=== PATIENT | male | born 1945 | race Caucasian/White ===

== ENCOUNTER 2022-08-10 12:57 | Inpatient (IN) | payer OTHER, MEDICAID ==
[~2022-08-10] VITALS: Ht 30.5 cm; Wt 0.5 kg
--- NOTE | 2022-08-10 13:00 | NUR ---
BIB ALS WITH C/C OF ALOC WITH HYPOTENSION. PT WAS AT HOME WITH ALOC, EMS CHECKED BP WITH 80/43, IV INSERTED AND BOLUS GIVEN. BP INCREASED TO 109/50. PT ON ARRIVAL A/O X 4, NAD NOTED. PT UNSURE TO WHY HE IS HERE. PT APPEARS TO HAVE EMESIS. GLUCOSE IN FIELD 315. DR. CERVANTES MADE AWARE.
--- NOTE | 2022-08-10 13:30 | NUR ---
PLACED IN BED 4.
--- NOTE | 2022-08-10 13:45 | NUR ---
PT BIB BLS FROM HOME, CC ALOC, PT IS A&OX2, BLS REPORTS PAST MEDICAL HISTORY DIABETES, KIDNEY DISEASE AND HTN.
--- NOTE | 2022-08-10 13:50 | NUR ---
DR. CERVANTES EXAMINING PT AT BEDSIDE.
[2022-08-10 13:59] VITALS: BP_SYST 119
[2022-08-10] MEDS ORDERED: NACL 0.9% 1,000 ML IV ONE ×2 (14:00→16:45)
[2022-08-10 14:29] LABS: BASOPHILS # (AUTO) 0.2 K/uL (0.0-0.2); BASOPHILS % (AUTO) 4.1 % (0.0-2.0); EOSINOPHILS % (AUTO) 1.1 % (0.0-4.0); HEMATOCRIT 26.4 % (36-54); HEMOGLOBIN 8.9 g/dL (14.0-18.0); LYMPHOCYTES # (AUTO) 1.2 K/uL (1.0-5.5); LYMPHOCYTES % (AUTO) 29.7 % (20.5-51.5); MEAN CORPUSCULAR HEMOGLOBIN 32 pg (27-31); MEAN CORPUSCULAR HGB CONC 34 % (32-36); MEAN CORPUSCULAR VOLUME 94 fL (79.0-98.0); MONOCYTES # (AUTO) 0.2 K/uL (0.0-1.0); MONOCYTES % (AUTO) 5.4 % (1.7-9.3); NEUTROPHILS # (AUTO) 2.4 K/uL (1.8-7.7); NEUTROPHILS % (AUTO) 59.7 % (40.0-70.0); PLATELET COUNT (AUTO) 94 K/uL (130-430)
[2022-08-10 14:45] LABS: ANION GAP 9 (5-15); CALCIUM 9.3 mg/dL (8.4-11.0); CHLORIDE 100 mmol/L (98-107); CREATININE 2.65 mg/dL (0.55-1.30); GLUCOSE 186 mg/dL (70-99); UREA NITROGEN, BLOOD 31 mg/dL (8-21)
[2022-08-10 14:52] LABS: ALANINE AMINOTRANSFERASE 20 U/L (12-78); ALBUMIN 2.9 g/dL (3.4-4.8); ASPARTATE AMINOTRANSFERASE 50 U/L (10-37); TOTAL BILIRUBIN 0.5 mg/dL (0.0-1.0)
[2022-08-10 14:54] LABS: ACETAMINOPHEN < 1 ug/mL (1-30); ALCOHOL, BLOOD < 3 mg/dL (<10)
[2022-08-10 14:57] LABS: INR 1.1 (0.80-1.20); PROTHROMBIN TIME 11.4 SECS (9.5-12.5)
--- NOTE | 2022-08-10 15:22 | NUR ---
INFLUENZA AND COVID SWABS OBTAINED AND SENT TO LAB.
--- NOTE | 2022-08-10 16:27 | NUR ---
CONTACT ETIENNE GOFF AT [phone] ANY CHANGE IN CONDITION AND/OR TRANSFER/ADMISSION.
[2022-08-10] MEDS ORDERED: cefTRIAXone 1 GM in D5W 50 ML IV ONE (16:45)
[2022-08-10] MEDS ORDERED: OSELTAMIVIR PHOSPHATE 75 MG CAPSULE PO ONE (17:00)
--- NOTE | 2022-08-10 17:09 | NUR ---
Admit bed requested Patient will be admitted to care of . Admitted to TELEMETRY unit. Diagnosis SYNCOPE Inpatient (Yes or No) Y Observation (Yes or No) N Orientation concerns or request close to nursing station (Yes or No) N Covid Status N On vent or bipap N Isolation requirements N Needs a sitter N From Home (Yes or if No enter name of facility) Y Requires Dialysis (Yes or No) N Med Rec Completed (Yes of No) N
--- NOTE | 2022-08-10 17:32 | NUR ---
SPOKE TO DAUGHTER AURELIANO INFORMED OF ADMISSION PROCEDURES. DAUGHTER WILL CALL BACK WITH MED RECONCILLIATION.
[2022-08-10 17:58] VITALS: BP_SYST 119
[2022-08-10] MEDS ORDERED: DOCUSATE SODIUM 100 MG CAPSULE PO PRN (18:00)
[2022-08-10] MEDS ORDERED: IPRATROPIUM/ALBUTEROL SULFATE 3 ML AMPUL.NEB (DUONEB) INH PRN (18:00)
[2022-08-10] MEDS ORDERED: MAGNESIUM SULFATE 50 ML IV PRN (18:00)
[2022-08-10] MEDS ORDERED: POTASSIUM CHLORIDE 20 MEQ TAB.PRT.SR PO PRN (18:00)
[2022-08-10] MEDS ORDERED: ONDANSETRON HCL 4 MG/2 ML VIAL IVP PRN (18:00)
[2022-08-10] MEDS ORDERED: ZOLPIDEM TARTRATE 5 MG TABLET PO PRN (18:00)
[2022-08-10] MEDS ORDERED: ACETAMINOPHEN 325 MG TABLET PO PRN (18:00)
[2022-08-10] MEDS ORDERED: MORPHINE 2 MG/ML INJ. SYRINGE IVP PRN ×2 (18:00)
[2022-08-10] MEDS ORDERED: LORazepam 2 MG/ML VIAL IVP PRN (18:00)
[2022-08-10] MEDS: NACL 0.9% 1,000 ML IV SCH (18:00)
[2022-08-10] MEDS ORDERED: NALOXONE HCL 0.4 MG/ML AMP (NARCAN) IVP PRN ×2 (18:00)
[2022-08-10] MEDS ORDERED: MUPIROCIN 2% TOPICAL OINTMENT 22 GM NS PRN (18:00)
[2022-08-10] MEDS ORDERED: cefTRIAXone 1 GM VIAL ONE (18:09)
[2022-08-10] MEDS ORDERED: DEXTROSE 50% JECT 50 ML DISP.SYRIN IVP PRN (18:15)
[2022-08-10 18:39] LABS: BILIRUBIN,URINE NEGATIVE (NEGATIVE); BLOOD, URINE NEGATIVE (NEGATIVE); CLARITY/URINE CLEAR (CLEAR); GLUCOSE,URINE 1+ (NEGATIVE); KETONES,URINE NEGATIVE (NEGATIVE); LEUKOCYTE ESTERASE ,URINE NEGATIVE (NEGATIVE); NITRITE, URINE NEGATIVE (NEGATIVE); PH,URINE 5.5 (5.0-8.0); PROTEIN URINE 1+ (NEGATIVE)
[2022-08-10 18:52] LABS: COLOR,URINE AMBER (YELLOW)
[2022-08-10 18:56] LABS: BARBITURATE, URINE NEGATIVE (NEG <=200); BENZODIAZEPINE, URINE NEGATIVE (NEG <=150); CANNABINOID, URINE NEGATIVE (NEG <=50); COCAINE, URINE NEGATIVE (NEG <=150); METHAMPHETAMINES SCREEN,URINE NEGATIVE (NEG <=500); OPIATE, URINE NEGATIVE (NEG <=100); PHENCYCLIDINE SCREEN,URINE NEGATIVE (NEG <=25); UR TRICYCLIC ANTIDEPRESSANTS NEGATIVE (NEG <=300); URINE AMPHETAMINE NEGATIVE (NEG <=500); URINE METHADONE NEGATIVE (NEG <=200); URINE OXYCODONE SCREEN NEGATIVE (NEG <=100); URINE PROPOXYPHENE SCREEN NEGATIVE (NEG <=300)
[2022-08-10 19:05] LABS: BACTERIA,URINE FEW /HPF (None Seen); FINE GRANULAR CASTS,URINE 0-10 /LPF (None Seen); MUCUS,URINE None Seen /LPF (None Seen); RBC,URINE NONE SEEN /HPF (0-3); WBC,URINE 0-3 /HPF (0-3)
[2022-08-10] MEDS ORDERED: ACETAMINOPHEN 500 MG TABLET PO ONE (20:15)
[2022-08-10] MEDS ORDERED: ACETAMINOPHEN 325 MG TABLET PO ONE (20:15)
--- NOTE | 2022-08-10 20:15 | NUR ---
Patient will be admitted to care of DR. WOLF. Admitted to TELE unit. Will go to room 130B. Belongings list completed. Complete and up to date summary report printed. SBAR report to be given at bedside TO GLEN MCCONNELL with opportunity for questions. INFORMED ABOUT LATEST DWJO=893.3. APAP 1 G PO ADMINISTERED W/ COOLING MEASURES. ENDORSED ACCORDINGLY.
[2022-08-10] MEDS ORDERED: HEPARIN SODIUM,PORCINE 5,000 UNITS/ML VIAL SUBCUT SCH (21:00)
--- NOTE | 2022-08-10 21:30 | NUR ---
ADMISSION NOTE Received patient from ER via gurney. Patient admitted with diagnosis of SYNCOPE. Patient is awake, alert, oriented X 3. Patient oriented to hospital room, call light, toileting, pain management and safety-teach back done. Patient informed that [their room number is 130B. Personal belongings checked and Belongings List documented. Call light within reach.
--- NOTE | 2022-08-10 21:46 | NUR ---
Received report from Adriana CARROLL Pt resting comfortably in bed AOX4 VSS Able to make needs known Will continue to monitor
[2022-08-10 22:29] VITALS: BP_SYST 176
[2022-08-10 22:40] LABS: TOTAL IRON BIND. CAPACITY 294 ug/dL (250-450)
[2022-08-11] VITALS (8 sets, daily range): BP systolic 126–132
--- NOTE | 2022-08-11 02:33 | NUR ---
Pt resting comfortably in bed AOX4 VSS Able to make needs known Will continue to monitor
[2022-08-11] MEDS ORDERED: [UNRECOGNIZED DRUG - CODE] (06:27)
[2022-08-11] MEDS ORDERED: APIX2.5T PO (06:27)
[2022-08-11] MEDS ORDERED: HYDR-3919 PO (06:27)
[2022-08-11] MEDS ORDERED: NEU300 PO (06:27)
[2022-08-11] MEDS ORDERED: METO25TA3 PO (06:27)
[2022-08-11] MEDS ORDERED: ROSU40TA PO (06:27)
[2022-08-11] MEDS ORDERED: INSU100V46 SQ (06:27)
[2022-08-11] MEDS ORDERED: FINA5TAB3 PO (06:27)
[2022-08-11] MEDS ORDERED: ICOS1CAP PO (06:27)
[2022-08-11] MEDS ORDERED: ENAL2.5T39 PO (06:27)
[2022-08-11] MEDS ORDERED: RANO500T2 PO (06:27)
[2022-08-11] MEDS ORDERED: ISOS60TA71 PO (06:27)
[2022-08-11] MEDS ORDERED: INSU100V9 SQ (06:27)
[2022-08-11] MEDS ORDERED: TAMS-11 PO (06:27)
[2022-08-11] MEDS: NACL 0.9% 1,000 ML IV SCH ×2 (06:40→19:00)
--- NOTE | 2022-08-11 07:16 | NUR ---
Gave report to AM RN AOX4 VSS Pt able to make needs known at this time AM RN to continue care
--- NOTE | 2022-08-11 07:23 | NUR ---
Gave report to AM RN AOX4 VSS Pt able to make needs known at this time AM RN to continue care
[2022-08-11 08:38] LABS: BASOPHILS % (AUTO) 0.1 % (0.0-2.0); HEMATOCRIT 25.1 % (36-54); HEMOGLOBIN 8.6 g/dL (14.0-18.0); LYMPHOCYTES # (AUTO) 1.4 K/uL (1.0-5.5); MEAN CORPUSCULAR HEMOGLOBIN 32 pg (27-31); MEAN CORPUSCULAR HGB CONC 35 % (32-36); MEAN CORPUSCULAR VOLUME 93 fL (79.0-98.0); MONOCYTES # (AUTO) 0.2 K/uL (0.0-1.0); NEUTROPHILS # (AUTO) 5.5 K/uL (1.8-7.7); NEUTROPHILS % (AUTO) 76.9 % (40.0-70.0); PLATELET COUNT (AUTO) 100 K/uL (130-430); RED CELL DISTRIBUTION WIDTH 16.9 % (9.0-15.0)
[2022-08-11 08:56] LABS: ANION GAP 12 (5-15); CALCIUM 9.3 mg/dL (8.4-11.0); CHLORIDE 101 mmol/L (98-107); CREATININE 2.05 mg/dL (0.55-1.30); UREA NITROGEN, BLOOD 23 mg/dL (8-21)
[2022-08-11] MEDS ORDERED: APIXABAN 2.5 MG TABLET PO SCH (09:00)
[2022-08-11] MEDS: OSELTAMIVIR PHOSPHATE 6 MG/1 ML, 60 ML SUSP PO SCH ×2 (09:00→21:32)
[2022-08-11 09:08] LABS: WHITE BLOOD COUNT (AUTO) 7.2 K/uL (4.8-10.8)
[2022-08-11 09:46] LABS: GLUCOSE 402 mg/dL (70-99)
[2022-08-11] MEDS ORDERED: TAMSULOSIN HCL 0.4 MG CAP PO ONE (10:00)
[2022-08-11] MEDS ORDERED: METOPROLOL SUCCINATE 25 MG TAB.SR.24H (TOPROL XL) PO ONE (10:00)
[2022-08-11] MEDS ORDERED: FINASTERIDE 5 MG TABLET (PROSCAR) PO ONE (10:00)
[2022-08-11] MEDS ORDERED: INSULIN Lispro 100 UNITS/ML, 3 ML VIAL (humaLOG) SUBCUT ONE (11:15)
[2022-08-11] MEDS: INSULIN LISPRO SLIDING SCALE 100 UNITS/ML, 3 ML VIAL (humaLOG) SUBCUT PRN ×3 (11:51→23:27)
[2022-08-11] MEDS: RANOLAZINE 500 MG TAB.SR.12H PO SCH ×2 (11:54→21:32)
[2022-08-11] MEDS: ISOSORBIDE MONONITRATE 30 MG TAB.ER.24H PO SCH (11:55)
[2022-08-11] MEDS: GABAPENTIN 300 MG CAPSULE PO SCH ×2 (12:08→21:31)
[2022-08-11] MEDS ORDERED: INSULIN NPH/REGULAR 70-30, 100 UNITS/ML, 3 ML VIAL SUBCUT SCH (17:00)
[2022-08-11] MEDS: INSULIN NPH/REGULAR 70-30, 100 UNITS/ML, 3 ML VIAL SUBCUT SCH (17:31)
--- NOTE | 2022-08-11 20:00 | NUR ---
Received report to AM GLEN Veliz Pt AOX4 VSS Pt able to make needs known at this time Will continue to monitor pt
[2022-08-11] MEDS: APIXABAN 2.5 MG TABLET PO SCH (22:03)
[2022-08-12 00:23] VITALS: BP_SYST 150
--- NOTE | 2022-08-12 02:00 | NUR ---
Pt resting comfortably in bed Aroused by sound AOX4 VSS Pt able to make needs known at this time Will continue to monitor
[2022-08-12 04:45] VITALS: BP_SYST 149
--- NOTE | 2022-08-12 05:00 | NUR ---
Pt resting comfortably in bed Aroused by sound AOX4 VSS Pt able to make needs known at this time Will continue to monitor
[2022-08-12 06:49] LABS: ANION GAP 7 (5-15); CALCIUM 9.9 mg/dL (8.4-11.0); CHLORIDE 102 mmol/L (98-107); CREATININE 1.83 mg/dL (0.55-1.30); GLUCOSE 295 mg/dL (70-99); UREA NITROGEN, BLOOD 26 mg/dL (8-21)
[2022-08-12 06:57] LABS: ALANINE AMINOTRANSFERASE 19 U/L (12-78); ALBUMIN 2.4 g/dL (3.4-4.8); ASPARTATE AMINOTRANSFERASE 42 U/L (10-37); TOTAL BILIRUBIN 0.4 mg/dL (0.0-1.0)
[2022-08-12 07:00] LABS: EOSINOPHILS % (AUTO) 0.5 % (0.0-4.0); HEMATOCRIT 24.4 % (36-54); HEMOGLOBIN 8.2 g/dL (14.0-18.0); LYMPHOCYTES # (AUTO) 1.7 K/uL (1.0-5.5); LYMPHOCYTES % (AUTO) 33.3 % (20.5-51.5); MEAN CORPUSCULAR HEMOGLOBIN 31 pg (27-31); MEAN CORPUSCULAR HGB CONC 34 % (32-36); MEAN CORPUSCULAR VOLUME 93 fL (79.0-98.0); MONOCYTES # (AUTO) 0.3 K/uL (0.0-1.0); MONOCYTES % (AUTO) 5.6 % (1.7-9.3); NEUTROPHILS % (AUTO) 60.6 % (40.0-70.0); PLATELET COUNT (AUTO) 97 K/uL (130-430); RED BLOOD CELL COUNT(AUTO) 2.61 MIL/uL (4.2-6.2); RED CELL DISTRIBUTION WIDTH 16.4 % (9.0-15.0)
[2022-08-12] MEDS: NACL 0.9% 1,000 ML IV SCH (08:18)
[2022-08-12] MEDS ORDERED: FERR-31 PO (08:45)
[2022-08-12] MEDS ORDERED: ATORVASTATIN 20 MG TABLET PO SCH (09:00)
[2022-08-12] MEDS ORDERED: TAMSULOSIN HCL 0.4 MG CAP PO SCH (09:00)
[2022-08-12] MEDS ORDERED: METOPROLOL SUCCINATE 25 MG TAB.SR.24H (TOPROL XL) PO SCH (09:00)
[2022-08-12] MEDS ORDERED: FERROUS SULFATE 325 MG TABLET.DR PO ONE (09:00)
[2022-08-12] MEDS ORDERED: FINASTERIDE 5 MG TABLET (PROSCAR) PO SCH (09:00)
[2022-08-12] MEDS: GABAPENTIN 300 MG CAPSULE PO SCH (09:21)
[2022-08-12] MEDS: RANOLAZINE 500 MG TAB.SR.12H PO SCH (09:22)
[2022-08-12] MEDS: ISOSORBIDE MONONITRATE 30 MG TAB.ER.24H PO SCH (09:24)
[2022-08-12] MEDS: INSULIN NPH/REGULAR 70-30, 100 UNITS/ML, 3 ML VIAL SUBCUT SCH (09:30)
[2022-08-12] MEDS: APIXABAN 2.5 MG TABLET PO SCH (09:30)
[2022-08-12] MEDS: OSELTAMIVIR PHOSPHATE 6 MG/1 ML, 60 ML SUSP PO SCH (09:44)
--- NOTE | 2022-08-12 09:50 | NUR ---
Discharge Planning: DCP faxed pt referral to [facility] [phone], patient accepted
[2022-08-12 10:27] LABS: HEMOGLOBIN A1C 7.3 % (4.8-5.6)
[2022-08-12 12:00] VITALS: BP_SYST 142
[2022-08-12 12:07] LABS: FOLATE (FOLIC ACID) 11.3 ng/mL (>3.0)
[2022-08-12 12:08] LABS: CHOLESTEROL 91 mg/dL (<200); HDL CHOLESTEROL 18 mg/dL (>45); LDL CHOLESTEROL 33 mg/dL (<100); TRIGLYCERIDES 287 mg/dL (30-150)
--- NOTE | 2022-08-12 15:00 | NUR ---
PATIENT DISCHARGED WITH SON, SON AND FATHER GIVEN DISCHARGE TEACHING AND PAPERWORK, BOTH DEMONSTRATED KNOWLEDGE OF NEW MEDICATION AND PREVIOUS DIAGNOSIS. PATIENT LEFT UNIT VIA WHEELCHAIR WITH HIS PERSONAL BELONGINGS AND WENT HOME WITH SON IN PERSONAL VEHICLE. CARE PLAN COMPLETE AND READY FOR DISCHARGE, PATIENT DEEMED INDEPENDENT. PATIENT LEFT UNIT 1645 ON 08/12/2022.
[2022-08-12 15:12] VITALS: BP_SYST 134
[2022-08-12 16:15] VITALS: BP_SYST 133
[2022-08-12] MEDS ORDERED: FERROUS SULFATE 325 MG TABLET.DR PO SCH (21:00)
== END 2022-08-12 15:00 | disposition home health service (06) | DRG 871 ==
LOC: SED 12:57 → STU 17:05
PROVIDERS: ADMIT General Practice; ATTEND General Practice
DX: A41.9 Sepsis, unspecified organism (principal); N17.0 Acute kidney failure with tubular necrosis; E44.0 Moderate protein-calorie malnutrition; N39.0 Urinary tract infection, site not specified; E87.1 Hypo-osmolality and hyponatremia; Z68.1 Body mass index [BMI] 19.9 or less, adult; N18.4 Chronic kidney disease, stage 4 (severe); I24.9 Acute ischemic heart disease, unspecified; G90.8 Other disorders of autonomic nervous system; J10.1 Influenza due to other identified influenza virus with other respiratory manifestations; D63.8 Anemia in other chronic diseases classified elsewhere; N40.0 Benign prostatic hyperplasia without lower urinary tract symptoms; Z20.822 Contact with and (suspected) exposure to COVID-19; I12.9 Hypertensive chronic kidney disease with stage 1 through stage 4 chronic kidney disease, or unspecified chronic kidney disease; E11.22 Type 2 diabetes mellitus with diabetic chronic kidney disease; K21.9 Gastro-esophageal reflux disease without esophagitis; I25.10 Atherosclerotic heart disease of native coronary artery without angina pectoris; E11.65 Type 2 diabetes mellitus with hyperglycemia; Z79.01 Long term (current) use of anticoagulants; Z87.01 Personal history of pneumonia (recurrent); Z87.891 Personal history of nicotine dependence
CPT/HCPCS: 36415; 70450-TC; 70551; 71045; 76376; 76770; 80048; 80053; 80061; 80307; 81000; 82272; 82607; 82728; 82746; 82962; 83036; 83540; 83550; 83605; 83735; 83880; 84484; 85025; 85610-TC; 85730-TC; 87040; 93005; 93306; 93880; 94760; 96365; 96366; 99285; G0378; G0480; G0481; G0482; G9035; J0696; J1815; J7030